=== PATIENT | male | born 1970 | race Hispanic/Latino ===

== ENCOUNTER 2021-08-13 20:26 | Inpatient (IN) | payer BC, OTHER ==
[~2021-08-13] VITALS: Ht 182.9 cm; Wt 98.0 kg
[~2021-08-13 20:26] MED LIST: AUGMENTIN 500-1 EACH PO
[2021-08-13] MEDS ORDERED: Morphine 4mg Syringe 4 MG/ML INJ IV ONE (20:45)
[2021-08-13] MEDS ORDERED: ONDANSETRON HCL INJ 2MG/ML 2ML 2 MG/ML VIAL IV STA (20:45)
[2021-08-13 20:51] LABS: BASOPHILS % 0.2 % (0.0-1.0); EOSINOPHILS % 0.1 % (0.0-6.0); HEMATOCRIT 47.3 % (38.2-49.6); HEMOGLOBIN 16.2 g/dL (14.0-18.0); LYMPHOCYTES # (AUTO) 1.3 (1.0-3.2); LYMPHOCYTES % 7.7 % (18.0-39.1); MEAN CORPUSCULAR HEMOGLOBIN 30.8 pg (28-32); MEAN CORPUSCULAR HGB CONC 34.2 g/dL (31-35); MEAN CORPUSCULAR VOLUME 89.9 fL (81-99); MONOCYTES # (AUTO) 2.1 (0.2-0.8); MONOCYTES % 12.2 % (4.4-11.3); NEUTROPHILS # (AUTO) 13.3 (2.1-6.9); NEUTROPHILS % 79.1 % (38.7-80.0); PLATELET COUNT 264 x10e3/uL (140-360); RED BLOOD COUNT 5.26 x10e6/uL (4.3-5.7); RED CELL DISTRIBUTION WIDTH 12.6 % (11.7-14.4)
[2021-08-13] MEDS ORDERED: ONDANSETRON HCL INJ 2MG/ML 2ML 2 MG/ML VIAL ONE (21:00)
[2021-08-13] MEDS ORDERED: Morphine 4mg Syringe 4 MG/ML INJ ONE (21:00)
[2021-08-13] MEDS ORDERED: SODIUM CHLORIDE 0.9% 1000ML 1,000 ML ONE (21:01)
[2021-08-13 21:03] LABS: ALBUMIN 3.6 g/dL (3.5-5.0); ALBUMIN/GLOBULIN RATIO 0.8 (0.8-2.0); ANION GAP 16.6 mmol/L (8-16); CALCIUM 9.5 mg/dL (8.4-10.2); CREATININE, SERUM 0.81 mg/dL (0.72-1.25); POTASSIUM 3.6 mmol/L (3.5-5.1)
[2021-08-13 21:10] LABS: CREATINE KINASE MB 0.8 ng/mL (0-5.0)
[2021-08-13 21:22] LABS: CLARITY,URINE CLEAR (CLEAR); COLOR,URINE YELLOW (YELLOW); KETONES,URINE NEGATIVE (NEGATIVE); LEUKOCYTE ESTERASE ,URINE NEGATIVE (NEGATIVE); NITRITE,URINE NEGATIVE (NEGATIVE); PROTEIN,URINE DIPSTICK NEGATIVE (NEGATIVE); URINE UROBILINOGEN 0.2 mg/dL (0.2 - 1)
[2021-08-13 21:26] LABS: BACTERIA,URINE RARE /HPF; EPITHELIAL CELLS,URINE FEW /LPF; RBC,URINE 0-5 /HPF (0-5)
[2021-08-13] MEDS ORDERED: SODIUM CHLORIDE 0.9% 50ML 50 ML ONE (21:26)
[2021-08-13] MEDS ORDERED: IOPAMIDOL 370 MG/ML 200 ML INFUS..BTL INJ ONE (21:26)
[2021-08-13] MEDS ORDERED: SODIUM CHLORIDE 0.9% 100 ML ONE (21:34)
[2021-08-13] MEDS ORDERED: PIPERACILLIN/TAZOBACTAM 3.375 GM VIAL ONE (21:34)
[2021-08-13] MEDS ORDERED: PIPERACILLIN/TAZOBACTAM 3.375 GM in SODIUM CHLORIDE 0.9% 50ML 50 ML IV ONE (21:55)
[2021-08-13] MEDS ORDERED: ONDANSETRON HCL INJ 2MG/ML 2ML 2 MG/ML VIAL IV PRN (23:00)
[2021-08-13] MEDS: SODIUM CHLORIDE 0.9% 1000ML 1,000 ML IV SCH (23:31)
[2021-08-13] MEDS: Morphine 4mg Syringe 4 MG/ML INJ IV PRN (23:32)
[2021-08-13] MEDS: ACETAMINOPHEN 325 MG TAB PO PRN (23:52)
[2021-08-13] MEDS ORDERED: ACETAMINOPHEN 325 MG TAB ONE (23:58)
[2021-08-14] VITALS (7 sets, daily range): BP systolic 103–167; BP diastolic 65–74
[2021-08-14] MEDS: Morphine 4mg Syringe 4 MG/ML INJ IV PRN ×5 (04:05→20:57)
[2021-08-14] MEDS: PIPERACILLIN/TAZOBACTAM 3.375 GM in SODIUM CHLORIDE 0.9% 50ML 50 ML IV SCH ×3 (04:32→14:46)
[2021-08-14] MEDS: SODIUM CHLORIDE 0.9% 1000ML 1,000 ML IV SCH ×4 (04:32→20:50)
[2021-08-14] MEDS: ACETAMINOPHEN 1000 MG/100 ML IV PRN (06:28)
[2021-08-14] MEDS: ACETAMINOPHEN 325 MG TAB PO PRN ×2 (12:57→21:06)
[2021-08-14] MEDS: CLINDAMYCIN PHOS 900MG/ 50ML 50 ML IV SCH (20:54)
[2021-08-14] MEDS: MEROPENEM 1 GM in SODIUM CHLORIDE 0.9% 100 ML IV SCH (22:25)
[2021-08-15] VITALS (8 sets, daily range): BP systolic 109–127; BP diastolic 75–84
[2021-08-15] MEDS: SODIUM CHLORIDE 0.9% 1000ML 1,000 ML IV SCH ×4 (01:40→21:14)
[2021-08-15] MEDS: Morphine 4mg Syringe 4 MG/ML INJ IV PRN ×4 (02:54→19:57)
[2021-08-15] MEDS: ACETAMINOPHEN 1000 MG/100 ML IV PRN (03:30)
[2021-08-15] MEDS: CLINDAMYCIN PHOS 900MG/ 50ML 50 ML IV SCH ×3 (04:00→19:56)
[2021-08-15 05:11] LABS: BASOPHILS # (AUTO) 0.1 (0.0-0.1); BASOPHILS % 0.3 % (0.0-1.0); EOSINOPHILS % 0.2 % (0.0-6.0); HEMATOCRIT 40.5 % (38.2-49.6); HEMOGLOBIN 13.5 g/dL (14.0-18.0); LYMPHOCYTES # (AUTO) 1.3 (1.0-3.2); LYMPHOCYTES % 6.7 % (18.0-39.1); MEAN CORPUSCULAR HEMOGLOBIN 30.3 pg (28-32); MEAN CORPUSCULAR HGB CONC 33.3 g/dL (31-35); MONOCYTES % 10.4 % (4.4-11.3); NEUTROPHILS # (AUTO) 15.4 (2.1-6.9); NEUTROPHILS % 81.6 % (38.7-80.0); PLATELET COUNT 200 x10e3/uL (140-360); RED BLOOD COUNT 4.45 x10e6/uL (4.3-5.7); RED CELL DISTRIBUTION WIDTH 12.6 % (11.7-14.4)
[2021-08-15 05:52] LABS: ALBUMIN 2.7 g/dL (3.5-5.0); ALBUMIN/GLOBULIN RATIO 0.8 (0.8-2.0); ANION GAP 13.5 mmol/L (8-16); CALCIUM 8.7 mg/dL (8.4-10.2); POTASSIUM 3.5 mmol/L (3.5-5.1)
[2021-08-15] MEDS: MEROPENEM 1 GM in SODIUM CHLORIDE 0.9% 100 ML IV SCH ×3 (06:07→21:14)
[2021-08-15 06:46] LABS: CREATININE, SERUM 0.7 mg/dL (0.72-1.25)
[2021-08-16] VITALS (9 sets, daily range): BP systolic 123–140; BP diastolic 80–91
[2021-08-16] MEDS: Morphine 4mg Syringe 4 MG/ML INJ IV PRN ×5 (03:13→23:08)
[2021-08-16] MEDS: CLINDAMYCIN PHOS 900MG/ 50ML 50 ML IV SCH ×3 (04:03→19:49)
[2021-08-16] MEDS: SODIUM CHLORIDE 0.9% 1000ML 1,000 ML IV SCH ×3 (04:08→17:04)
[2021-08-16] MEDS: MEROPENEM 1 GM in SODIUM CHLORIDE 0.9% 100 ML IV SCH ×3 (05:33→21:22)
[2021-08-16 08:00] LABS: BASOPHILS % 0.3 % (0.0-1.0); EOSINOPHILS # (AUTO) 0.3 (0.0-0.4); EOSINOPHILS % 2.6 % (0.0-6.0); HEMATOCRIT 39.1 % (38.2-49.6); LYMPHOCYTES # (AUTO) 1.9 (1.0-3.2); LYMPHOCYTES % 15.2 % (18.0-39.1); MEAN CORPUSCULAR HEMOGLOBIN 30.2 pg (28-32); MEAN CORPUSCULAR HGB CONC 33.2 g/dL (31-35); MEAN CORPUSCULAR VOLUME 90.7 fL (81-99); MONOCYTES # (AUTO) 1.2 (0.2-0.8); MONOCYTES % 9.7 % (4.4-11.3); NEUTROPHILS # (AUTO) 9.1 (2.1-6.9); NEUTROPHILS % 71.4 % (38.7-80.0); PLATELET COUNT 239 x10e3/uL (140-360); RED BLOOD COUNT 4.31 x10e6/uL (4.3-5.7); RED CELL DISTRIBUTION WIDTH 12.7 % (11.7-14.4)
[2021-08-16 08:26] LABS: ALBUMIN 2.5 g/dL (3.5-5.0); ALBUMIN/GLOBULIN RATIO 0.6 (0.8-2.0); ANION GAP 12.7 mmol/L (8-16); CALCIUM 8.6 mg/dL (8.4-10.2); POTASSIUM 3.7 mmol/L (3.5-5.1)
[2021-08-16 08:41] LABS: CREATININE, SERUM 0.65 mg/dL (0.72-1.25)
[2021-08-17] VITALS (8 sets, daily range): BP systolic 116–137; BP diastolic 70–87
[2021-08-17] MEDS: SODIUM CHLORIDE 0.9% 1000ML 1,000 ML IV SCH ×4 (00:38→20:20)
[2021-08-17] MEDS: CLINDAMYCIN PHOS 900MG/ 50ML 50 ML IV SCH ×3 (03:46→20:00)
[2021-08-17] MEDS: Morphine 4mg Syringe 4 MG/ML INJ IV PRN ×4 (03:49→20:41)
[2021-08-17 05:03] LABS: BASOPHILS % 0.4 % (0.0-1.0); EOSINOPHILS # (AUTO) 0.4 (0.0-0.4); EOSINOPHILS % 3.7 % (0.0-6.0); HEMOGLOBIN 13.6 g/dL (14.0-18.0); LYMPHOCYTES # (AUTO) 2.3 (1.0-3.2); LYMPHOCYTES % 22.8 % (18.0-39.1); MEAN CORPUSCULAR HEMOGLOBIN 30.5 pg (28-32); MEAN CORPUSCULAR VOLUME 89.7 fL (81-99); MONOCYTES % 10.3 % (4.4-11.3); NEUTROPHILS # (AUTO) 6.2 (2.1-6.9); NEUTROPHILS % 61.7 % (38.7-80.0); PLATELET COUNT 287 x10e3/uL (140-360); RED BLOOD COUNT 4.46 x10e6/uL (4.3-5.7); RED CELL DISTRIBUTION WIDTH 12.5 % (11.7-14.4)
[2021-08-17] MEDS: MEROPENEM 1 GM in SODIUM CHLORIDE 0.9% 100 ML IV SCH ×3 (05:25→21:25)
[2021-08-17 05:44] LABS: ALBUMIN 2.6 g/dL (3.5-5.0); ALBUMIN/GLOBULIN RATIO 0.7 (0.8-2.0); ANION GAP 15.7 mmol/L (8-16); CALCIUM 8.6 mg/dL (8.4-10.2); CREATININE, SERUM 0.6 mg/dL (0.72-1.25); POTASSIUM 3.7 mmol/L (3.5-5.1)
[2021-08-18] VITALS (9 sets, daily range): BP systolic 120–140; BP diastolic 61–95
[2021-08-18] MEDS: Morphine 4mg Syringe 4 MG/ML INJ IV PRN ×3 (02:45→21:01)
[2021-08-18] MEDS: SODIUM CHLORIDE 0.9% 1000ML 1,000 ML IV SCH ×3 (03:02→16:30)
[2021-08-18] MEDS: CLINDAMYCIN PHOS 900MG/ 50ML 50 ML IV SCH ×3 (04:03→20:58)
[2021-08-18 05:29] LABS: BASOPHILS # (AUTO) 0.1 (0.0-0.1); BASOPHILS % 0.8 % (0.0-1.0); EOSINOPHILS # (AUTO) 0.3 (0.0-0.4); EOSINOPHILS % 3.7 % (0.0-6.0); HEMATOCRIT 41.5 % (38.2-49.6); HEMOGLOBIN 14.3 g/dL (14.0-18.0); LYMPHOCYTES # (AUTO) 2.2 (1.0-3.2); LYMPHOCYTES % 28.4 % (18.0-39.1); MEAN CORPUSCULAR HGB CONC 34.5 g/dL (31-35); MEAN CORPUSCULAR VOLUME 87.2 fL (81-99); MONOCYTES # (AUTO) 0.8 (0.2-0.8); MONOCYTES % 10.3 % (4.4-11.3); NEUTROPHILS # (AUTO) 4.3 (2.1-6.9); PLATELET COUNT 316 x10e3/uL (140-360); RED BLOOD COUNT 4.76 x10e6/uL (4.3-5.7); RED CELL DISTRIBUTION WIDTH 12.2 % (11.7-14.4)
[2021-08-18] MEDS: MEROPENEM 1 GM in SODIUM CHLORIDE 0.9% 100 ML IV SCH ×3 (05:51→22:39)
[2021-08-18 05:55] LABS: ALBUMIN 2.7 g/dL (3.5-5.0); ALBUMIN/GLOBULIN RATIO 0.9 (0.8-2.0); ANION GAP 13.8 mmol/L (8-16); CALCIUM 8.2 mg/dL (8.4-10.2); CREATININE, SERUM 0.62 mg/dL (0.72-1.25); POTASSIUM 3.8 mmol/L (3.5-5.1)
[2021-08-19] VITALS: BP 131/76
[2021-08-19 04:00] VITALS: BP 127/96
[2021-08-19] MEDS: CLINDAMYCIN PHOS 900MG/ 50ML 50 ML IV SCH ×2 (04:19→12:00)
[2021-08-19] MEDS: Morphine 4mg Syringe 4 MG/ML INJ IV PRN (04:30)
[2021-08-19] MEDS: SODIUM CHLORIDE 0.9% 1000ML 1,000 ML IV SCH ×3 (05:40→12:20)
[2021-08-19] MEDS: MEROPENEM 1 GM in SODIUM CHLORIDE 0.9% 100 ML IV SCH ×2 (06:11→14:00)
[2021-08-19 06:28] LABS: BASOPHILS # (AUTO) 0.1 (0.0-0.1); BASOPHILS % 0.7 % (0.0-1.0); EOSINOPHILS # (AUTO) 0.3 (0.0-0.4); EOSINOPHILS % 2.8 % (0.0-6.0); HEMATOCRIT 41.5 % (38.2-49.6); HEMOGLOBIN 14.2 g/dL (14.0-18.0); LYMPHOCYTES # (AUTO) 2.5 (1.0-3.2); LYMPHOCYTES % 25.5 % (18.0-39.1); MEAN CORPUSCULAR HEMOGLOBIN 30.3 pg (28-32); MEAN CORPUSCULAR HGB CONC 34.2 g/dL (31-35); MEAN CORPUSCULAR VOLUME 88.5 fL (81-99); MONOCYTES # (AUTO) 0.9 (0.2-0.8); MONOCYTES % 9.1 % (4.4-11.3); NEUTROPHILS # (AUTO) 5.8 (2.1-6.9); NEUTROPHILS % 59.8 % (38.7-80.0); PLATELET COUNT 351 x10e3/uL (140-360); RED BLOOD COUNT 4.69 x10e6/uL (4.3-5.7); RED CELL DISTRIBUTION WIDTH 12.5 % (11.7-14.4)
[2021-08-19 07:00] LABS: ALBUMIN 2.7 g/dL (3.5-5.0); ALBUMIN/GLOBULIN RATIO 0.7 (0.8-2.0); ANION GAP 12.6 mmol/L (8-16); CALCIUM 8.2 mg/dL (8.4-10.2); CREATININE, SERUM 0.66 mg/dL (0.72-1.25); POTASSIUM 3.6 mmol/L (3.5-5.1)
[2021-08-19 08:59] VITALS: BP 127/96
[2021-08-19 10:24] VITALS: BP 123/85
[2021-08-19 11:50] VITALS: BP 125/81
[2021-08-19 16:23] VITALS: BP 116/76
[2021-08-19] MEDS ORDERED: AUGMENTIN 500-1 EACH PO (17:05)
[2021-08-19] MEDS ORDERED: FLAGYL375 MG PO (17:05)
[2021-08-19] MEDS ORDERED: METRONIDAZOLE250 MG PO (17:07)
== END 2021-08-19 18:02 | disposition home or self-care (01) | DRG 871 ==
LOC: ER 20:44 → ERHOLD 22:55 → MED/SURG2 08-14 00:02
DX: A41.9 Sepsis, unspecified organism (principal); K65.0 Generalized (acute) peritonitis; K57.20 Diverticulitis of large intestine with perforation and abscess without bleeding; E66.3 Overweight; Z68.29 Body mass index [BMI] 29.0-29.9, adult; Z20.822 Contact with and (suspected) exposure to COVID-19; E86.0 Dehydration
CPT/HCPCS: 36415; 74177; 80053; 81001; 82550; 82553; 83605; 83690; 83735; 84484; 85025; 87086; 94799; 99284; J2185; J2270; J2405; J2543; J7030; J7050; Q9967; U0002

== ENCOUNTER → 2021-09-30 | Outpatient (CLI) | payer BC ==
[~2021-09-30] MED LIST changes: +FLAGYL375 MG PO; +METRONIDAZOLE250 MG PO
== END ==
LOC: DX 09:14
PROVIDERS: ATTEND Surgery
DX: Z87.19 Personal history of other diseases of the digestive system (principal)
CPT/HCPCS: 74280